=== PATIENT | female | born 1950 | race Caucasian/White ===

== ENCOUNTER 2020-04-03 11:01 | Outpatient (CLI) | payer MEDICARE ==
--- NOTE | 2020-04-03 11:32 | RAD ---
3 views of the right shoulder: 04/03/2020 COMPARISON: None HISTORY: Fall FINDINGS: There is mild degenerative change of the right acromioclavicular joint with interspace narr owing and inferior osteophyte formation. There is no displaced fracture or evidence of dislocation seen. There is superior elevation of the hu meral head on the right which may signify underlying rotator cuff pathology. IMPRESSION: Degenerative changes with no acute fracture or dislocation.
== END 2020-04-03 11:02 | disposition home or self-care (01) ==
LOC: MADRAD 11:01
PROVIDERS: ATTEND Physician Assistant
DX: Z91.81 History of falling (principal); M19.011 Primary osteoarthritis, right shoulder

== ENCOUNTER 2020-08-29 16:06 | Outpatient (CLI) | payer MEDICARE, OTHER ==
--- NOTE | 2020-08-29 17:16 | RAD ---
EXAM: 3 views of the left ankle HISTORY: Ankle pain after fall COMPARISON: 01/02/2015 FINDINGS: 3 views of the left ankle shows no evidence of acute fracture or dislocation. There is candelaria deling of the distal fibula secondary to a remote healed fracture in this location. Moderate diffuse soft tissue swelling is seen. No degenerative changes are present. IMPRESSION: No evidence of acute osseous abnormality.
--- NOTE | 2020-08-29 17:17 | RAD ---
EXAM: 3 views of the left foot HISTORY: Foot pain after fall COMPARISON: None FINDINGS: 3 views of the left foot shows a spiral fracture of the proximal phalanx of the fourth toe. No other fractures are seen. Mild fourth toe soft tissue swelling is seen. No degenerative changes are present. IMPRESSION: Proximal phalanx fracture of the fourth toe
== END 2020-08-29 16:07 | disposition home or self-care (01) ==
LOC: MADRAD 16:06
PROVIDERS: ATTEND Physician Assistant
DX: M25.572 Pain in left ankle and joints of left foot (principal); S92.512A Displaced fracture of proximal phalanx of left lesser toe(s), initial encounter for closed fracture

== ENCOUNTER 2020-09-20 17:59 | Emergency (ER) | payer MEDICARE, OTHER | END 2020-09-20 19:34 | disposition home or self-care (01) | LOC: MADERS 17:59 | DX: S82.61XA Displaced fracture of lateral malleolus of right fibula, initial encounter for closed fracture (principal); K21.9 Gastro-esophageal reflux disease without esophagitis; E78.5 Hyperlipidemia, unspecified; E78.00 Pure hypercholesterolemia, unspecified; F17.210 Nicotine dependence, cigarettes, uncomplicated; Z79.82 Long term (current) use of aspirin; Z79.899 Other long term (current) drug therapy; X50.1XXA Overexertion from prolonged static or awkward postures, initial encounter | CPT/HCPCS: 27786 ==

== ENCOUNTER 2023-08-24 23:53 | Emergency (ER) | payer MEDICARE ==
[2023-08-25] MEDS ORDERED: Ketorolac Tromethamine 30 MG (1 mL) VIAL ONE (00:18)
[2023-08-25] MEDS ORDERED: Gabapentin 100 MG CAP ONE (00:18)
[2023-08-25 00:28] LABS: #Basophils 0.1 thou/uL (0.0-0.2); #Eosinphils 0.4 thou/uL (0.0-0.7); #Lymphocytes 2.4 thou/uL (1.20-3.40); #Monocytes 0.8 thou/uL (0.11-0.59); #Neutrophils 6.6 thou/uL (1.40-6.50); %Eosinophils 3.9 % (0.0-10.0); %Lymphocytes 23.1 % (21.0-51.0); %Monocytes 7.9 % (0.0-10.0); %Neutrophils 64.1 % (42.0-75.0); Hematocrit 44.3 % (36.0-47.0); Hemoglobin 15.1 g/dL (12.0-16.0); Mean Corpuscular HGB CONC 34.1 g/dL (32.0-36.0); Mean Corpuscular Hemoglobin 32.7 pg (27.0-31.0); Mean Corpuscular Volume 95.8 fl (78.0-98.0); Mean Platelet Volume 6.8 fL (7.4-10.4); Platelet Count 263 10x3/uL (130-400); Red Blood Cell (RBC) Count 4.62 mill/uL (4.20-5.40); White Blood Cell (WBC) Count 10.3 10x3/uL (4.8-10.8)
[2023-08-25] MEDS ORDERED: Lidocaine 4% Patch ONE (00:47)
[2023-08-25 00:51] LABS: ALT (SGPT) 20 U/L (8-55); AST (SGOT) 16 U/L (5-34); Albumin 4.5 g/dL (3.4-4.8); Alkaline Phosphatase 93 U/L (40-110); Anion Gap 15 mmol/L (10-20); BUN (Urea Nitrogen) 26 mg/dL (9.8-20.1); Bilirubin, Total 0.4 mg/dL (0.2-1.2); Calc. Creatinine Clearance 0 mL/min (70-130); Calcium 9.5 mg/dL (7.8-10.44); Carbon Dioxide 23 mmol/L (23-31); Chloride 110 mmol/L (98-107); Estimated GFR 46; Globulin 2.7 g/dL (2.4-3.5); Glucose 100 mg/dL (83-110); Protein, Total 7.2 g/dL (5.8-8.1); Sodium 144 mmol/L (136-145)
== END 2023-08-25 01:25 | disposition home or self-care (01) ==
LOC: MADERS 23:53
DX: M54.16 Radiculopathy, lumbar region (principal); R94.4 Abnormal results of kidney function studies; E78.00 Pure hypercholesterolemia, unspecified; I10 Essential (primary) hypertension; F17.210 Nicotine dependence, cigarettes, uncomplicated
CPT/HCPCS: 36415; 80053; 85025; 85379; 86140; 96372; J1885